=== PATIENT | female | born 1960 ===

== ENCOUNTER → 2019-05-15 | Outpatient (CLI) | payer OTHER ==
[~2019-05-15] MED LIST: ACEBUTCAFT PO; CLOB.05TC TP; EPIN.3I IM; LORA10ER PO; OXYACE5T PO; PRED10 PO
== END | disposition home or self-care (01) ==
LOC: LAB SHORT 18:31 → LAB 18:31
DX: L30.1 Dyshidrosis [pompholyx] (principal); L08.9 Local infection of the skin and subcutaneous tissue, unspecified; L70.8 Other acne; R21 Rash and other nonspecific skin eruption; L81.4 Other melanin hyperpigmentation; L82.1 Other seborrheic keratosis; D18.01 Hemangioma of skin and subcutaneous tissue; D22.5 Melanocytic nevi of trunk; L73.8 Other specified follicular disorders; L72.0 Epidermal cyst; I78.8 Other diseases of capillaries; L85.8 Other specified epidermal thickening
CPT/HCPCS: 87070; 87205